=== PATIENT | male | born 1955 | race Caucasian/White ===

== ENCOUNTER 2018-01-13 09:13 | Outpatient (REF) | payer BC, SELFPAY ==
[2018-01-13 21:25] LABS: COMMENT (LAB VIEW ONLY) 117.29 mg/dL; Microalb ug/mg Crea 5.2 ug/mg Cr
== END 2018-01-13 09:14 ==
LOC: NCHCN 09:13
PROVIDERS: PCP Physician Assistant Medical; Visit Provider Physician Assistant Medical
DX: I10 Essential (primary) hypertension (principal); E11.9 Type 2 diabetes mellitus without complications; N18.3 Chronic kidney disease, stage 3 (moderate)
CPT/HCPCS: 82043; 82570

== ENCOUNTER 2018-02-16 08:26 | Outpatient (REF) | payer BC, SELFPAY ==
[2018-02-16 18:42] LABS: ALT 23 U/L (12-78); Anion Gap 4.5 mmol/L (3-11); BUN 15 mg/dL (7-18); CO2 33.5 mmol/L (21.0-32.0); Calcium 8.7 mg/dL (8.5-10.1); Chloride 103 mmol/L (98-107); Estimated GFR 55.94 (mL/min/1.73m2); Glucose 128 mg/dL (70-100); Potassium 3.9 mmol/L (3.5-5.1); Sodium 141 mmol/L (136-145)
== END 2018-02-16 08:46 ==
LOC: NCHCN 08:26
PROVIDERS: PCP Physician Assistant Medical; Visit Provider Physician Assistant Medical
DX: E11.65 Type 2 diabetes mellitus with hyperglycemia (principal); I10 Essential (primary) hypertension; N18.3 Chronic kidney disease, stage 3 (moderate)
CPT/HCPCS: 80048; 84460

== ENCOUNTER 2018-03-26 16:55 | Outpatient (REF) | payer BC, SELFPAY ==
[2018-03-26 19:08] LABS: Abs Immature Grans 0.01 k/cumm (0.0-0.09); Absolute Basophil Count 0.01 k/cumm (0.0-0.2); Absolute Eosinophil Count 0.22 k/cumm (0.0-0.7); Absolute Lymphocyte Count 1.58 k/cumm (1.2-3.4); Absolute Monocyte Count 0.71 k/cumm (0.11-0.7); Absolute Neutrophil Count 3.08 k/cumm (1.2-6.7); Basophils % 0.2; Eosinophils % 3.9; HGB 16.2 g/dL (13.5-17.5); Immature Grans % 0.2; Lymphocytes % 28.2; Mean Corp. HGB Concentration 34.5 g/dL (32.0-36.0); Mean Corpuscular Hemoglobin 28.6 pg (27.0-33.0); Mean Platelet Volume 10.2 fL (8.0-11.0); Monocytes % 12.7; Neutrophils % 54.8; Platelet Count 179 x1000/uL (130-400); RBC 5.66 m/cumm (4.50-6.00); RBC Distribution Width 13.2 % (11.8-14.1); White Blood Cell Count 5.61 k/cumm (4.4-10.8)
[2018-03-26 19:11] LABS: ALT 20 U/L (12-78); AST 17 U/L (15-37); Albumin 3.5 g/dL (3.4-5.0); Alkaline Phosphatase 68 U/L (46-116); Amylase 64 U/L (25-115); Anion Gap 10.8 mmol/L (3-11); BUN 13 mg/dL (7-18); Bilirubin, Total 1.5 mg/dL (0.2-1.0); CO2 30.2 mmol/L (21.0-32.0); CREATININE 1.13 mg/dL (0.70-1.30); Calcium 8.7 mg/dL (8.5-10.1); Chloride 102 mmol/L (98-107); Glucose 82 mg/dL (70-100); Lipase 168 U/L (73-393); Potassium 3.6 mmol/L (3.5-5.1); Sodium 143 mmol/L (136-145); Total Protein 6.8 g/dL (6.4-8.2)
[2018-03-26 20:37] LABS: Hemoglobin A1C 5.3 % (4.5-6.2)
== END 2018-03-26 17:15 ==
LOC: NCHCN 16:55
PROVIDERS: PCP Physician Assistant Medical; Visit Provider Nurse Practitioner Family
DX: R10.13 Epigastric pain (principal)
CPT/HCPCS: 80053; 83690; 82150; 83036; 85025

== ENCOUNTER 2019-02-10 09:13 | Outpatient (REF) | payer BC, SELFPAY ==
[2019-02-10 18:46] LABS: Anion Gap 12.1 mmol/L (3-11); BUN 18 mg/dL (7-18); CO2 24.9 mmol/L (21.0-32.0); CREATININE 1.33 mg/dL (0.70-1.30); Calcium 8.7 mg/dL (8.5-10.1); Chloride 105 mmol/L (98-107); Estimated GFR 54.31 (mL/min/1.73m2); Glucose 147 mg/dL (70-100); Sodium 142 mmol/L (136-145)
[2019-02-14 10:43] LABS: PSA, Screening 0.8 ng/ml (0-4.5)
== END 2019-02-10 09:33 ==
LOC: NCHCN 09:13
PROVIDERS: PCP Physician Assistant Medical; Visit Provider Nurse Practitioner Family
DX: I10 Essential (primary) hypertension (principal); R35.1 Nocturia; Z12.5 Encounter for screening for malignant neoplasm of prostate
CPT/HCPCS: 80048; 84153

== ENCOUNTER 2019-03-31 08:15 | Day surgery (SDC) | payer BC, SELFPAY ==
[2019-03-31] VITALS (9 sets, daily range): BP systolic 123–169; BP diastolic 69–102; PULSE 72–102; RESP 11–18; TEMP 36.3–36.6; O2SAT 91–96
[2019-03-31] MEDS: Lactated Ringers 1,000 ML 80 ML IV (08:45)
[2019-03-31] MEDS: CIPROFLOXACIN 400 MG/200 ML BAG 200 MG IVPB (09:02)
[2019-03-31] MEDS: Lidocaine 2% Jelly 6 ML SYR (11:28)
[2019-03-31] MEDS: Omnipaque 300 MG/ML 50 ML BTL (12:00)
--- NOTE | 2019-03-31 12:31 | PDOC.DSDIS_ITS ---
Discharge Plan Disposition Patient Disposition: HOME Condition: Stable Discharge Details Reason For Visit: surgery Attending Provider: Srikanth Mason Primary Care Provider: Valentin Monreal [place] Meds and New Rx's Prescriptions: No Action tramadol 50 mg tablet 50 mg PO BID PRNRF: 0 tamsulosin [Flomax] 0.4 mg capsule 0.4 mg PO DAILY RF: 0 oxybutynin chloride 5 mg tablet 2.5 mg PO DAILY RF: 0 amlodipine 2.5 mg tablet 2.5 mg PO DAILY RF: 0 losartan 50 mg tablet 50 mg PO DAILY RF: 0 atorvastatin 20 mg tablet 20 mg PO QHS RF: 0 sumatriptan succinate [Imitrex] 100 mg tablet 100 mg PO ONCE PRNRF: 0 metoprolol succinate 50 mg tablet extended release 24 hr 50 mg PO DAILY RF: 0 omeprazole 20 mg capsule,delayed release(DR/EC) 40 mg PO DAILY RF: 0 albuterol sulfate [ProAir HFA] 90 mcg/actuation HFA aerosol inhaler 2 puff IH Q6H PRNRF: 0 sildenafil [Viagra] 100 mg tablet 50 mg PO DAILY PRNRF: 0 Discharge Instructions Additional Instructions: no need to strain urine F/U appt with me 4 to 6 weeks with renal ultrasound on same visit Activity:: Activity as Tolerated Shower/Bathe:: 24 hours Diet:: As Tolerated Discharge Orders Discharge Orders: Discharge Order (Routine); Ordered 03/31/19 Ordered By: Srikanth Mason DS: Diagnosis Discharge Diagnosis (1) Bilateral kidney stones: Status: Acute
--- NOTE | 2019-03-31 12:32 | DI.RAD_ITS ---
EXAM: XR RETROGRADE IN OR INDICATION: Bilat renal stones. COMPARISON: No exams were available for comparison TECHNIQUE: 2D digital imaging was performed. FINDINGS: C-arm fluoroscopy was utilized by Dr. Mason during retrograde ureteral catheterization. Please see Micah Mason procedure note. IMPRESSION:
[2019-03-31] MEDS: fentaNYL 100 MCG/2 ML VIAL IVP (13:07)
[2019-03-31] MEDS: Phenazopyridine 200 MG TAB PO (13:59)
--- NOTE | 2019-04-01 09:31 | ROE_ITS ---
DATE OF PROCEDURE: March 31, 2019 PREOPERATIVE DIAGNOSIS: Bilateral kidney stones. POSTOPERATIVE DIAGNOSIS: Same. PROCEDURE: Cystoscopy; bilateral retrograde pyelogram; bilateral flexible ureteroscopy with stone ex tractions. SURGEON: Srikanth Mason M.D. ANESTHESIA: General. COMPLICATIONS: None. HISTORY: This is a 63-year-old gentleman who has chronic back pain. His back pain worsened recently and he was identified as having bilateral kidney stones. He presents now for stone manipulation. OPERATIVE REPORT: The patient was brought to the operating room on 03/31/19. After successful induct ion of general anesthesia, he was placed in the dorsal lithotomy position. His genitalia was prepped and draped. 2% Xylocaine jelly was instilled into the urethra to act as a local anesthetic. The 22 Chinese rigid cystoscope was then passed through the urethra into the bladder. The pendulous, bulbous and membranous urethras appeared normal. The prostatic urethra showed some la teral lobe enlargement. Both ureteral orifices were identified. I initially attempted to catheterize the left ureteral orifi ce with a 6 Chinese access catheter. I was unable to do so initially. I then moved on to the right side. I was able to pass the 6 Chinese access catheter and inject Omnipa que through the access catheter under fluoroscopic guidance. This allowed me to outline his renal ca lyces. I then passed a Guidewire through the access catheter and removed the access catheter and cystoscope. We passed a dual-lumen catheter over the wire and positioned a second wire. One of the wires was cho sen as a working wire and the other as a safety wire. The ureteral access sheath was then advanced over the working wire. The tip of the sheath was positi oned in the proximal ureter. A flexible ureteroscope was advanced through the access sheath up to the renal pelvis. The calyces w ere inspected and the previously-identified 6 mm stone was visualized. I was able to grasp this ston e in a Zero Tip stone basket and extract it in its entirety. The stone was sent to Pathology for casandra mical analysis. We then returned to cystoscopy and eventually I was able to guide a Glidewire through the ureteral or ifice and advance it up the left ureter. I then passed a dual-lumen catheter over the wire and posit ioned a second wire. We again chose one of the wires as a working wire and the other as a safety wir e. I passed a ureteral access sheath over the working wire, leaving the safety wire in place. The flexible ureteroscope was then reintroduced through the access sheath up to the level of the eric l pelvis. The calyces were inspected. In the upper pole calyx a stone was visualized and was graspe d in a Zero Tip stone basket. The stone was extracted in its entirety. Based on the CT, we expected a second stone in a mid-pole calyx. We again passed the flexible scope and visualized the second stone. This too was grasped in a Zero Tip stone basket and extracted. The ureteral access sheath and safety wire were then removed. The bladder was emptied. The patient tolerated this procedure well. He was taken to the recovery room in stable condition. He will follow-up with me in 4 to 6 weeks. H e will obtain a renal ultrasound and we will review his stone analysis. cc: Valentin Monreal M.D.
[2019-04-01 20:27] LABS: Source: Left Kidney; Source: Right Kidney
== END 2019-03-31 14:40 | disposition home or self-care (01) ==
PROVIDERS: PCP Internal Medicine; Visit Provider Urology
PROC: (CPT 52352; principal; 2019-03-31 10:15)
DX: N20.0 Calculus of kidney (principal); E11.22 Type 2 diabetes mellitus with diabetic chronic kidney disease; N18.3 Chronic kidney disease, stage 3 (moderate); I10 Essential (primary) hypertension; G89.29 Other chronic pain
CPT/HCPCS: 52352; 74420; 82365; J0744; J1100; J1885; J2405; J3010; Q9967

== ENCOUNTER 2019-05-04 01:19 | Outpatient (CLI) | payer BC, SELFPAY ==
--- NOTE | 2019-05-04 15:51 | DI.US_ITS ---
EXAM: US RENAL CLINICAL HISTORY: r/o hydronephrosis after ureteroscopy, FERNANDO KIDNEY STONES, N20.0 TECHNIQUE: Ultrasound performed using standard protocol. COMPARISON: CT RENAL COLIC from 03/09/2019 FINDINGS: Prevoid bladder volume measures 280 cc. There is a 21 cc postvoid residual. Right ureteral jet was visualized. The left ureteral jet was not visualized. The prostate was not measured. Multiple cyst s were noted on the right ovary, the largest measuring 5.4 x 5.2 x 6.8 cm. Bilateral nonobstructing stones are visible on the previous CT. No stones or hydronephrosis is seen on the current ultrasound . IMPRESSION: No evidence of hydronephrosis. Right renal cysts. No renal calculi were visible.
== END 2019-05-04 01:39 ==
PROVIDERS: PCP Internal Medicine; Visit Provider Urology
DX: N20.0 Calculus of kidney (principal); N28.1 Cyst of kidney, acquired
CPT/HCPCS: 76770

== ENCOUNTER 2019-09-20 17:42 | Outpatient (REF) | payer BC, SELFPAY ==
[2019-09-20 19:51] LABS: Anion Gap 6.9 mmol/L (3-11); BUN 21 mg/dL (7-18); CO2 30.1 mmol/L (21.0-32.0); CREATININE 1.23 mg/dL (0.70-1.30); Calcium 8.6 mg/dL (8.5-10.1); Chloride 103 mmol/L (98-107); Estimated GFR 59.24 (mL/min/1.73m2); Glucose 90 mg/dL (74-106); Sodium 140 mmol/L (136-145); TSH 0.51 uIU/mL (0.36-3.74)
[2019-09-20 20:01] LABS: Hemoglobin A1C 5.9 % (3.8-5.6)
== END 2019-09-20 18:02 ==
LOC: NCHCN 17:42
PROVIDERS: PCP Internal Medicine; Visit Provider Nurse Practitioner Family
DX: I10 Essential (primary) hypertension (principal); E11.9 Type 2 diabetes mellitus without complications
CPT/HCPCS: 80048; 83036; 84443

== ENCOUNTER 2019-11-01 02:41 | Outpatient (CLI) | payer BC, SELFPAY ==
--- NOTE | 2019-11-01 07:00 | DI.US_ITS ---
EXAM: US RENAL CLINICAL HISTORY: BILAT KIDNEY STONES, N20.0, ? HYDRONEPHROSIS. TECHNIQUE: Saravia scale, color and spectral Doppler were used. COMPARISON: CT CT RENAL COLIC from 03/09/2019 US US RENAL from 05/04/2019 FINDINGS: Renal size in cm: Right: 12.3 left: 14.7 Echogenicity: Normal. Hydronephrosis: No. Cyst or mass: Several simple right renal cysts. The largest measures 6.8 cm in maximum diameter. Nephrolithiasis: No definite stones are seen sonographically. Other findings: None. Bladder:Normal. Ureteral jets: Right: Visualized and unremarkable. Left: Visualized and unremarkable. Prevoid vol:132 cc The patient stated that he did not need to void. Prostate: Not measured at this time. Cc DOPPLER FINDINGS: Normal and symmetric blood flow to the kidneys. IMPRESSION: No evidence of hydronephrosis. DATA REPOSITORY:
== END 2019-11-01 03:01 ==
PROVIDERS: PCP Internal Medicine; Visit Provider Urology
DX: N20.0 Calculus of kidney (principal); N28.1 Cyst of kidney, acquired
CPT/HCPCS: 76770

== ENCOUNTER 2019-11-18 03:25 | Outpatient (CLI) | payer BC, SELFPAY ==
[2019-11-17 09:17] LABS: CREATININE 1.35 mg/dL (0.70-1.30); Estimated GFR 53.21 (mL/min/1.73m2)
--- NOTE | 2019-11-18 07:38 | DI.CT_ITS ---
EXAM: CT ABDOMEN PELVIS WO/W CLINICAL HISTORY: evaluate renal mass,N28.89 TECHNIQUE: COMPARISON: No exams were available for comparison FINDINGS: CT examination of the abdomen and pelvis was performed utilizing CT urogram protocol. Images obtaine d through the lung bases are unremarkable. Visualized portions of the liver, spleen, pancreas, bile ducts, and gallbladder are unremarkable. Abdominal aorta is of normal diameter and no major vascular abnormality is seen. No abdominal or pelvic adenopathy. Fat containing umbilical hernia noted. Appendix appears normal. No evidence of diverticulitis or bowel obstruction. Adrenals appear normal bilaterally. There are multiple right renal cysts, these were also noted on u ltrasound examination to be anechoic. The renal collecting systems appear normal. Renal cortex enha nces normally and symmetrically. No other renal cortical lesions identified. Ureters appear normal. Urinary bladder is unremarkable in appearance. Mild prostatic enlargement noted. IMPRESSION: Multiple right renal cysts. Otherwise unremarkable CT urogram. Largest right renal cyst measures ro ughly 7 cm in greatest diameter.
[2019-11-18] MEDS: Omnipaque 350 MG/ML 100 ML BTL IJ (11:50)
== END 2019-11-18 03:45 ==
PROVIDERS: PCP Internal Medicine; Visit Provider Urology
DX: N28.89 Other specified disorders of kidney and ureter (principal); N28.1 Cyst of kidney, acquired
CPT/HCPCS: 74178; 82565; J3490

== ENCOUNTER 2020-05-03 08:39 | Outpatient (REF) | payer OTHER, SELFPAY ==
[2020-05-03 19:49] LABS: Anion Gap 5.1 mmol/L (3-11); BUN 22 mg/dL (7-18); CO2 31.9 mmol/L (21.0-32.0); CREATININE 1.35 mg/dL (0.70-1.30); Calcium 8.9 mg/dL (8.5-10.1); Chloride 105 mmol/L (98-107); Estimated GFR 53.04 (mL/min/1.73m2); Glucose 100 mg/dL (74-106); Hemoglobin A1C 5.2 % (<5.7); Potassium 4.2 mmol/L (3.5-5.1); Sodium 142 mmol/L (136-145)
== END 2020-05-03 08:59 ==
LOC: NCHCN 08:39
PROVIDERS: PCP Internal Medicine; Visit Provider Nurse Practitioner Family
DX: I10 Essential (primary) hypertension (principal); R73.09 Other abnormal glucose
CPT/HCPCS: 80048; 83036

== ENCOUNTER 2020-12-03 07:13 | Outpatient (CLI) | payer OTHER, SELFPAY ==
--- NOTE | 2020-12-03 | DI.RAD_ITS ---
Exam(s) XR WRIST LT COMPLETE EXAM: XR WRIST LT COMPLETE CLINICAL HISTORY: LT WRIST PAIN, M25.532. TECHNIQUE: 2D digital imaging was performed. COMPARISON: No exams were available for comparison FINDINGS: Three views reveal no evidence of fracture or carpal dislocation. No significant ulnar variance. Sc aphoid appears unremarkable. Scapholunate distance is upper normal. Bone density is normal. No osseous lesions. No erosions. IMPRESSION: DATA REPOSITORY: RADIATION DOSE DELIVERED:
== END 2020-12-03 07:33 ==
PROVIDERS: PCP Internal Medicine; Visit Provider Nurse Practitioner Family
DX: M25.532 Pain in left wrist (principal)
CPT/HCPCS: 73110

== ENCOUNTER 2020-12-04 09:34 | Outpatient (REF) | payer OTHER, SELFPAY ==
[2020-12-04 19:13] LABS: Anion Gap 8.3 mmol/L (3-11); BUN 19 mg/dL (7-18); CO2 30.7 mmol/L (21.0-32.0); CREATININE 1.4 mg/dL (0.70-1.30); Calcium 8.8 mg/dL (8.5-10.1); Chloride 107 mmol/L (98-107); Estimated GFR 50.86 (mL/min/1.73m2); Glucose 111 mg/dL (74-106); Sodium 146 mmol/L (136-145)
[2020-12-05 19:59] LABS: Calculated LDL 47 mg/dL (<100); Cholesterol 112 mg/dL (<200); HDL Cholesterol 53 mg/dL (40-60); Triglyceride 63 mg/dL (<150)
[2020-12-05 20:14] LABS: COMMENT (LAB VIEW ONLY) 132.12 mg/dL; Microalb ug/mg Crea 15.2 ug/mg Cr
== END 2020-12-04 09:35 | disposition home or self-care (01) ==
LOC: NCHCN 09:34
PROVIDERS: PCP Internal Medicine; Visit Provider Nurse Practitioner Family
DX: E78.5 Hyperlipidemia, unspecified (principal); N18.30 Chronic kidney disease, stage 3 unspecified
CPT/HCPCS: 80048; 80061; 82043; 82570

== ENCOUNTER 2021-01-07 02:43 | Outpatient (CLI) | payer OTHER, SELFPAY ==
[2021-01-07 12:55] LABS: Source Nasal/Nares
[2021-01-07 18:38] LABS: COVID-19 PCR Negative (Negative)
== END 2021-01-07 02:44 | disposition home or self-care (01) ==
LOC: LBO 02:43
PROVIDERS: PCP Internal Medicine; Visit Provider Surgery
DX: Z20.822 Contact with and (suspected) exposure to COVID-19 (principal); Z01.818 Encounter for other preprocedural examination
CPT/HCPCS: 87635

== ENCOUNTER 2021-01-09 10:06 | Day surgery (SDC) | payer OTHER, SELFPAY ==
[2021-01-09] VITALS (8 sets, daily range): BP systolic 78–147; BP diastolic 47–88; PULSE 68–90; RESP 16–23; TEMP 36.3–36.8; O2SAT 92–98; BMI 35.6
--- NOTE | 2021-01-09 06:33 | ENDO_ITS ---
Date of service: 01/09/21 Time of Service: 12:34 Endoscopy Report DATE OF PROCEDURE: 01/09/21 PRE-OP DIAGNOSIS: GERD, occult blood positive POST-OP DIAGNOSIS: other (polyps, gastritis and esophagitis) PROCEDURE: 1. EGD with biopsies 2. Colonoscopy with polypectomy SURGEON: Frida Menchaca ANESTHESIA TYPE: General:No Airway (see anesthesia record) ESTIMATED BLOOD LOSS: 4 PATHOLOGY: other (ascending polyps x2, descending polyp x2, sigmoid polyp) COMPLICATIONS: Other (possible aspiration) DISPOSITION: same day INDICATIONS: The patient is here for Colonoscopy pre-op. His last screening was reported 15+ years ago. He recently had a (+) IFOB test and is here in follow for this positive result. He has no family history of colon cancer. He has not had any bowel habit changes. -Discussed colonoscopy bowel prep as well as the procedure. Discussed possible complications of the procedure to include bleeding, pain, perforation, missed small lesion/polyp, sore throat, aspiration and adverse reaction to the medications. Questions were answered to patient?s satisfaction. No guarantees were implied or given. I spent 35 minutes in reviewing the record, seeing the patient, providing patient education, answering patient's questions and documenting in the medical record. P// Colonoscopy under sedation (2) GERD (gastroesophageal reflux disease): -Discussed Upper endoscopy procedure and the need to be NPO after midnight the night prior. Discussed possible complications of the procedure to include bleeding, pain, perforation, missed small lesion/polyp/ulcers, sore throat, aspiration and adverse reaction to the medications or sedation. Questions were answered to patient?s satisfaction. No guarantees were implied or given. PREP: Miralax/Dulcolax PROCEDURE START TIME: 12:34 PROCEDURE END TIME: 13:15 COLONOSCOPY RETRACTION TIME: 21 minutes PROCEDURE DESCRIPTION: After informed consent was obtained the patient was take to the procedure room and placed in a supine position. Monitors were applied and a time out was done. The patients name, date of , procedure type, allergies to medications and metal in their body was reviewed. A bite block was placed and the patient was sedated. Once sedated and comfortable the gastroscope was advanced through the oropharynx which was grossly normal into the esophagus. The proximal and mid- esophagus were normal. In the distal esophagus there was mild inflammation noted. The scope was advanced into the stomach and through the pylorus into the 3rd portion of the duodenum. The duodenum was noted to be normal. The scope was retracted back into the stomach. At this point the patient was not moving air well so the scope was removed and he was bagged. His saturations came up and he started to breath again. The scope was placed back down into the stomach without difficulty. There was mild inflammation noted in the antrum. Biopsies were done to rule out H. pylori. There were no ulcers. The scope was retro- flexed. The cardia and fundus were noted to be normal. There was no hiatal hernia noted. The scope was retracted back into the esophagus and biopsies were done of the GE junction to rule out Andre's. The Z line was regular. The GE junction was at 40 cm. While the patient was still sedated they were placed in a left decubitous position. A rectal exam was done. External exam was normal. Internal exam revealed a normal sphincter tone and no palpable masses. The prostate felt enlar ged and smooth. The scope was then introduced and retro-flexed. No internal hemorrhoids, masses or polyps were identified on retroflexion. The scope was then advanced to the cecum without difficulty. The ileocecal valve and appendiceal orifice were identified. The prep was adequate. The scope was then slowly retracted over 21 minutes back into the rectum. Polyps were removed with a hot snare in the ascending colon, and with cold forceps in the ascending colon, descending colon x2, and sigmoid colon x1. There was mild diverticulosis noted in the sigmoid colon. The scope was removed and the patient was woken up and taken back to Same day surgery in stable condition. The patient tolerated the procedure well and there were no immediate complications. Follow up: 3-5 years
--- NOTE | 2021-01-09 06:35 | W.PM.DSUDISC ---
Discharge Plan Disposition Patient Disposition: HOME Condition: Good Discharge Details Reason For Visit: Colonoscopy/egd Attending Provider: Frida Menchaca Primary Care Provider: Valentin Monreal Home Meds and New Rx's Prescriptions: New clindamycin HCl 300 mg capsule 600 mg PO Q6H 5 Days Qty: 40 RF: 0 prednisone 20 mg tablet 40 mg PO DAILY 5 Days Qty: 10 RF: 0 Continued amlodipine 10 mg tablet 10 mg PO DAILY RF: 0 oxybutynin chloride 5 mg tablet 2.5 mg PO DAILY RF: 0 losartan 50 mg tablet 50 mg PO DAILY RF: 0 atorvastatin 20 mg tablet 20 mg PO QHS RF: 0 metoprolol succinate 50 mg tablet extended release 24 hr 50 mg PO DAILY RF: 0 omeprazole 20 mg capsule,delayed release(DR/EC) 40 mg PO DAILY RF: 0 albuterol sulfate [ProAir HFA] 90 mcg/actuation HFA aerosol inhaler 2 puff IH Q6H PRNRF: 0 sildenafil [Viagra] 100 mg tablet 50 mg PO DAILY PRNRF: 0 tamsulosin 0.4 mg capsule 0.4 mg PO QAM RF: 0 Discontinued bisacodyl [Dulcolax (bisacodyl)] 5 mg tablet,delayed release (DR/EC) 5 mg PO ONCE Qty: 4 RF: 0 polyethylene glycol 3350 17 gram/dose powder 238 g PO ONCE Qty: 238 RF: 0 Discharge Instructions Instructions: Diverticulosis (DC), Colorectal Polyps (DC) Additional Instructions: Findings: polyps, diverticulosis mild inflammation of the stomach and esophagus Follow up: depends on final pathology Please call if you develop: fevers >101.5 Nausea or Vomiting Abdominal pain that is not transient Rectal bleeding that is more then a tbsp A hard abdomen and inability to pass gas Increased shortness of breath DAY SURGERY UNIT POST ENDOSCOPY INSTRUCTIONS Instructions for everyone who is given Anesthesia: For your safety, please do the following for the next 24 Hours: a. Do not drive or operate dangerous equipment b. Do not drink alcohol beverages or use any recreational drugs for the first 24 hours or while taking pain medications. The medications in your body may have a reaction that can be dangerous. c. Do not make any important decisions or sign any important papers 1. Generally there are no restrictions on your activity after a day or so has gone by, but you may feel a bit fatigued for a few days. 2. After you arrive home you may have a light meal and return to a normal diet as you can tolerate it without feeling sick to your stomach. 3. After surgery, you may feel pain or discomfort. This should be only transient, but if it persists please contact your doctor. 4. If there are any questions regarding the findings of your procedure, please feel free to contact your doctor. 6. If you are unable to contact your doctor with a problem, contact the hospital at [phone]. 7. Continue all your regular medications unless directed otherwise. I understand the above instructions and have no questions. Signature of Patient or Responsible Adult Escort Date/Time Name of Responsible Adult Escort Signature of Nurse Date/Time Activity:: Activity as Tolerated Diet:: As Tolerated Discharge Orders Discharge Orders: Discharge Order (Routine); Ordered 01/09/21 Ordered By: Frida Menchaca
[2021-01-09] MEDS: Lactated Ringers 1,000 ML 80 ML IV (10:44)
--- NOTE | 2021-01-09 12:17 | W.ANESPRE ---
General Info Date of Service Date Performed: 01/09/21 Height: 5 ft 9 in Weight: 109.3 kg Body Mass Index (BMI): 35.6 Surgical Procedure: Operation Date: 01/09/21 11:20 Proposed Procedures Side Surgeon p Colonoscopy/Gastroscopy Frida Menchaca MD Meds Allergies and Home Medications Allergies Allergy/AdvReac Type Severity Reaction Status Date / Time amoxicillin Allergy Verified 01/09/21 10:23 Home Medication Medication Instructions Recorded albuterol sulfate 90 mcg/actuation 2 puff IH Q6H PRN 03/11/19 aerosol inhaler atorvastatin 20 mg tablet 20 mg PO QHS 03/11/19 losartan 50 mg tablet 50 mg PO DAILY 03/11/19 metoprolol succinate 50 mg 50 mg PO DAILY 03/11/19 tablet,extended release 24 hr omeprazole 20 mg capsule,delayed 40 mg PO DAILY cap 03/11/19 release oxybutynin chloride 5 mg tablet 2.5 mg PO DAILY tab 03/11/19 sildenafil 100 mg tablet 50 mg PO DAILY PRN tab 03/11/19 amlodipine 10 mg tablet 10 mg PO DAILY 10/06/19 bisacodyl 5 mg tablet,delayed 5 mg PO ONCE #4 tab 12/20/20 release polyethylene glycol 3350 17 238 g PO ONCE #238 g 12/20/20 gram/dose oral powder tamsulosin 0.4 mg PO QAM 01/08/21 Current Visit Medications: Current Medications Generic Name Dose Route Start Last Admin Trade Name Freq PRN Reason Stop Dose Admin Hyoscyamine Sulfate 0.125 mg 01/09/21 06:35 Hyoscyamine 0.125 Mg Sl/Oral/Chew SL DIRECTED PRN Ringer's Solution 1,000 mls @ 80 mls/hr 01/09/21 06:00 01/09/21 10:44 IV 02/07/21 23:59 80 mls/hr INFUSION TRISTIAN Administration IV Miscellaneous Supplies 1 each 01/09/21 06:00 Iv Access IV 02/07/21 23:59 DIRECTED TRISTIAN Ondansetron HCl 4 mg 01/09/21 06:35 Ondansetron 4 Mg/2 Ml Vial IVP Q4H PRN PRN Nausea / Vomiting Sodium Chloride 0 ml 01/09/21 06:00 Normal Saline Flush 10 Ml Syr IV 02/07/21 23:59 PRN PRN Sodium Chloride 0 ml 01/09/21 06:00 Normal Saline 10 Ml Vial IJ 02/07/21 23:59 DIRECTED PRN Sterile Water 0 ml 01/09/21 06:00 Water,Injection,Sterile 10 Ml Vial IJ 02/07/21 23:59 DIRECTED PRN PFSH Active Problems Active Problems: Problem Status Onset Code Fecal occult blood test positive R19.5 Hyperlipidemia E78.5 Renal mass N28.89 Bilateral kidney stones N20.0 Medical History Medical History Bilateral kidney stones CKD stage 3 due to type 2 diabetes mellitus Diabetes mellitus Erectile dysfunction ETOH abuse Hepatitis B pt. states it was a misdiagnosis Hypertension Migraine headache pt. denies Nocturia Renal calculus, left Renal mass Seborrheic dermatitis Snoring Umbilical hernia Surgical History Surgical History History of hernia repair Hx of knee surgery 2016 Tobacco Smoking/Tobacco Use Status: Former Tobacco Use Alcohol Alcohol Intake: never Substance Use Substance use: Current Sobriety Substance use type: does not use Vital Signs and Lab Results Vital Signs Most Recent Vital Signs in EMR: Most Recent Vital Signs Temp Pulse Resp BP Pulse Ox 36.3 C L 68 16 147/88 H 98 01/09/21 10:09 01/09/21 10:09 01/09/21 10:09 01/09/21 10:09 01/09/21 10:09 Point of Care Results Point of Care Results: Finger Stick Blood Glucose 95 01/09/21 10:43 Lab Results Blood Type / Crossmatch: No Data to Display Complete Blood Count: No Data to Display Complete Metabolic Panel: No Data to Display Liver Function Panel: No Data to Display Coagulation Panel: No Data to Display Cardiac Panel: No Data to Display Arterial Blood Gas: No Data to Display Venous Blood Gas: No Data to Display Pancreas Panel: No Data to Display Thyroid Panel: No Data to Display Infectious Disease: Coronavirus (COVID-19)(PCR) Negative (Negative) 01/07/21 08:30 01/07/21 Coronavirus 2019 Source Nasal/Nares 01/07/21 08:30 01/07/21 Blood Cultures: No Data to Display Toxicology Panel: No Data to Display Anesthesia Assessment and Plan Anesthesia History Personal History: No History of Anesthesia Complications Family History: No Family History of Anesthesia Complications Exercise Tolerance Exercise Tolerance: Metabolic Equivalents>4 Pertinent Negatives Pertinent Negatives: No Symptoms of GERD (Well controlled with medication), No Major Cardiovascular Symptoms or Complaints, No Major Pulmonary Symptoms or Complaints (Asthma mild well controlled) and No History of CVA/TIA Cardiac & Pulmonary Exam Cardiac Exam: Normal S1/S2 Heart Sounds Pulmonary Exam: Clear Bilateral Breath Sounds Airway Exam Known Difficult Airway: No Mallampati Class: 3 Mouth Opening: Narrow (< 3cm) Thyromental Distance: Greater than 3 cm Neck Range of Motion: Full ROM Neck Circumference: Thick Teeth Condition: Edentulous Airway Comments: Edentulous Remaining bottom teeth broken missing ASA Classification ASA Score: ASA 2 Emergency Case?: No NPO Status NPO Status: NPO Clears >2 hours, Solids >8 hours Anesthesia Plan Resuscitation Status: Full Code Anesthesia Technique: General Anesthesia Airway Planned: Natural Airway Monitors Used: Standard Monitors
--- NOTE | 2021-01-09 12:30 | BOWEL_PTH ---
PATIENT: Nathan Higgins LOC: [facility] U#:[id number] AGE/SX: 65/M ROOM: RE01/09/[address]: Frida Menchaca MD : [id number] BED: DIS: 01/09/2021 SPEC #: [id number] RECD: 01/09/21 16:28 STATUS: MARLENA REMeredith #: [id number] DELMY: 01/09/21 12:[address]: Frida Menchaca DEPT: Surgical Specimen RECD BY: Adrianne Molina ENTERED: 01/09/21 16:31 SP TYPE: Bowel OTHR DR: Valentin Monreal Tissues: 1 - BIOPSY BOWEL 2 - STOMACH BIOPSY 3 - STOMACH BIOPSY 4 - ESOPHAGUS BIOPSY 5 - BIOPSY BOWEL 6 - BIOPSY BOWEL 7 - BIOPSY BOWEL Procedures: GROSS AND MICRO LEVEL 4 Comments: [id number]
[2021-01-09] MEDS: Albuterol/Ipratropium 3 ML UPD VIAL UPD (14:00)
--- NOTE | 2021-01-09 14:03 | DI.RAD_ITS ---
Exam(s) XR PORTABLE CHEST AP EXAM: XR PORTABLE CHEST AP CLINICAL HISTORY: potential aspiration. TECHNIQUE: 2D digital imaging was performed. COMPARISON: No exams were available for comparison FINDINGS: Heart size is normal. The mediastinum is not widened. Lungs are clear. No infiltrates nor obvious pleural effusions. IMPRESSION: No acute pulmonary findings on this single AP portable view of the chest. DATA REPOSITORY: RADIATION DOSE DELIVERED: All CT scans at this facility use at least one of these dose optimization techniques: automated exposure control; mA and/or kV adjustment per patient size (includes targeted e xams where dose is matched to clinical indication); or iterative reconstruction.
--- NOTE | 2021-01-09 14:38 | W.ANESPOSTOP ---
Postoperative Evaluation Date, Time and Location Date Performed: 01/09/21 Time Performed: 14:38 Patient Location: Day Surgery Unit Vital Signs Most Recent Imported Vital Signs: Most Recent Vital Signs Temp Pulse Resp BP Pulse Ox 36.8 C 90 21 101/47 L 94 01/09/21 14:25 01/09/21 14:25 01/09/21 14:25 01/09/21 14:25 01/09/21 14:25 Pain Score Most Recent Pain Score: Most Recent Pain Score Pain Level 0 01/09/21 10:09 Assessment Mental Status: Awake (Alert & Oriented to Patient Baseline) Airway and Respiratory Function: Patent airway with normal (patient baseline) respiratory exam Cardiovascular Function: Hemodynamically Stable Hydration Status: Adequately Hydrated Nausea & Vomiting: No Nausea or Vomiting Pain: Pt. Denies Any Pain Peripheral Nerve Block: Patient did not receive a nerve block
== END 2021-01-09 15:38 | disposition home or self-care (01) ==
LOC: SUR 10:06
PROVIDERS: PCP Internal Medicine; Visit Provider Surgery
PROC: (CPT 43239; principal; 2021-01-09 11:15)
DX: Z12.11 Encounter for screening for malignant neoplasm of colon (principal); D12.5 Benign neoplasm of sigmoid colon; D12.4 Benign neoplasm of descending colon; K29.70 Gastritis, unspecified, without bleeding; K57.30 Diverticulosis of large intestine without perforation or abscess without bleeding; K29.80 Duodenitis without bleeding; K31.89 Other diseases of stomach and duodenum; K21.00 Gastro-esophageal reflux disease with esophagitis, without bleeding
CPT/HCPCS: 43239; 45385; 45380; 88305; 71045; J1100; J2001; J7620

== ENCOUNTER 2021-01-14 15:32 | Outpatient (REF) | payer OTHER, SELFPAY ==
[2021-01-16 16:20] LABS: COVID-19 RT-PCR UVMMC Result Negative (Negative)
== END 2021-01-14 15:33 | disposition home or self-care (01) ==
LOC: NCHCN 15:32
PROVIDERS: PCP Internal Medicine; Visit Provider Nurse Practitioner Family
DX: Z20.822 Contact with and (suspected) exposure to COVID-19 (principal); R05 Cough
CPT/HCPCS: U0003

== ENCOUNTER 2021-07-10 14:50 | Outpatient (REF) | payer OTHER, SELFPAY ==
[2021-07-10 21:20] LABS: ALT 27 U/L (16-63); AST 21 U/L (15-37); Albumin 3.9 g/dL (3.4-5.0); Alkaline Phosphatase 76 U/L (46-116); Anion Gap 5.4 mmol/L (3-11); BUN 17 mg/dL (7-18); CO2 31.6 mmol/L (21.0-32.0); CREATININE 1.4 mg/dL (0.70-1.30); Calcium 8.4 mg/dL (8.5-10.1); Calculated LDL 50 mg/dL (<100); Chloride 106 mmol/L (98-107); Cholesterol 118 mg/dL (<200); Glucose 132 mg/dL (74-106); HDL Cholesterol 52 mg/dL (40-60); Potassium 4.2 mmol/L (3.5-5.1); Sodium 143 mmol/L (136-145); Total Protein 7.3 g/dL (6.4-8.2); Triglyceride 80 mg/dL (<150)
== END 2021-07-10 14:51 | disposition home or self-care (01) ==
LOC: NCHCN 14:50
PROVIDERS: PCP Internal Medicine; Visit Provider Nurse Practitioner Family
DX: I10 Essential (primary) hypertension (principal); E78.5 Hyperlipidemia, unspecified; R73.09 Other abnormal glucose
CPT/HCPCS: 80053; 80061

== ENCOUNTER 2021-07-12 14:42 | Outpatient (REF) | payer OTHER, SELFPAY ==
[2021-07-12 20:52] LABS: Hemoglobin A1C 5.7 % (<5.7)
== END 2021-07-12 14:43 | disposition home or self-care (01) ==
LOC: NCHCN 14:42
PROVIDERS: PCP Internal Medicine; Visit Provider Nurse Practitioner Family
DX: R73.09 Other abnormal glucose (principal)
CPT/HCPCS: 83036

== ENCOUNTER 2021-08-13 17:04 | Outpatient (REF) | payer OTHER, SELFPAY ==
--- OUTSIDE RECORDS SUMMARY | 2021-08-13 17:07 | XMS_ITS ---
:1955 Author Care Team Providers Name Role Phone GILL BRUNNER General Surgeon [phone] PENNY KRUEGER MD Primary Care Provider [phone] Allergies Code Code System Name Reaction Severity Status Onset 723 RxNorm Amoxicillin Respiratory Severe Active Distress 8 Medications Name Status Start Date Stop Date ? ? amlodipine 2.5 mg tablet Active ? Not carrie ilable aspirin 81 mg tablet,delayed release Active ? Not available Take 1 tablet every day by oral route in the morning. atorvastatin 20 mg tablet Active ? Not av ailable cephalexin 500 mg capsule Completed ? 2018 diazepam 5 mg tablet Active ? Not availab le Dilaudid 2 mg tablet Completed 03/20/2016 07/08/2017 1-2 Tablet: Every 4 to 6 hours as needed erythromycin 5 mg/gram (0.5 %) Completed ? 0 01/03/2019 eye ointment ibuprofen 800 mg tablet Completed 05/13/2016 07/08/19 18 1 (one) Tablet: Three times a day lisinopril 10 mg tablet Completed ? 01/04/20 19 lisinopril 20 mg tablet Completed ? 02/17/20 19 Take 1 tablet every day by oral route for 30 days. lisinopril 40 mg tablet Completed ? 01/04/20 19 losartan 50 mg tablet Active ? Not availa ble metoprolol succ 50 mg-hydrochlorothiazide 12.5 mg tabl et,ext.rel 24 hr Completed ? 11/09/2018 Take 1 tablet every day by oral route. metoprolol succinate ER 50 mg Active ? No t available tablet,extended release 24 hr Nizoral 2 % shampoo Active ? Not availabl e APPLY TO THE AFFECTED AREA(S), LATHER, LEAVE IN PLACE FOR 5 MINUTES, AND THEN RINSE OFF WITH WATER BY TOPICAL ROUTE ONCE WEEKLY omeprazole 20 mg capsule,delayed release Completed ? 02/16/2019 Take 2 capsules every day by oral route in the morning. oxybutynin chloride 5 mg tablet Active ? Not available oxycodone 5 mg tablet Completed 03/17/2016 07/08/2017 1-2 Tablet: every 4 -6 hours prn ProAir HFA 90 mcg/actuation aerosol inhaler Active ? Not available Inhale 2 puffs every 4 hours by inhalation route as needed. sumatriptan 100 mg tablet Active ? Not av ailable tamsulosin 0.4 mg capsule Active ? Not av ailable triamterene 37.5 mg-hydrochlorothiazide 25 mg capsule Completed ? 02/16/2019 Take 1 capsule every day by oral route for 30 days. Viagra 100 mg tablet Active ? Not availab le Take 0.5 tablets every day by oral route as needed. Problems Name Status Onset Date Source ? Type 2 Diabetes Mellitus Active 11/09/2018 ? Migraine Active 11/09/2018 ? Hypertensive Disorder Active 11/09/2018 ? Umbilical Hernia Active 11/09/2018 ? Chronic Kidney Disease Stage 3 Active 11/09/2018 ? Primary Erectile Dysfunction Active 11/09/2018 ? Seborrheic Dermatitis Active 11/09/2018 ? Snoring Active 11/09/2018 ? Epigastric Pain Active 11/09/2018 ? History of Alcohol Abuse Active 11/09/2018 ? History of Hepatitis B Active 11/09/2018 ? Umbilical Hernia without Obstruction Active ? History and without Gangrene Shoulder Joint Pain Active ? History Strain of Muscle And/or Tendon of Thigh Active ? History Procedure by Method Active ? History Injury of Left Lower Leg Active ? History Procedures Date Name Performed by ? 03/23/2019 Kidney Operation Information not avai lable Notes: stones removed 02/23/2019 Repair of Hernia of Anterior Abdominal W all Information not available Notes: incarcerated umbilical hernia 05/25/2015 Arthroplasty of Knee Information not carrie ilable 08/21/2008 Egd Information not avai lable Notes: mild esophagitis, gastritis, a nd duodenitis 08/21/2008 Colonoscopy Information not avai lable Notes: normal colonoscopy 05/25/2000 Vasectomy Information not avai lable Results Lab Results None recorded. Past Encounters None recorded. Social History Tobacco Smoking Status Former Smoker Notes: quit Vaccine List None recorded. Plan of Care Reminders Provider Appointments None ? ? recorded. Lab None ? ? recorded. Referral None ? ? recorded. Procedures None ? ? recorded. Surgeries None ? ? recorded. Imaging None ? ? recorded. Vitals 04/15/2019 02:00PM Office 15 Height Blood Pressure 176.53 cm 142/90 mm[Hg] 01/03/2019 02:00PM Office 15 Height 176.53 cm 11/12/2018 10:30AM Office 15 Height Weight BMI 176.53 cm 117.03 kg 37.6 kg/m2 05/13/2016 Height Weight 177.8 cm 117.48 kg 04/30/2016 Height Weight 177.8 cm 117.48 kg 04/23/2016 Height Weight 177.8 cm 117.48 kg 03/17/2016 Height Weight 177.8 cm 117.48 kg 01/13/2012 Height Weight Blood Pressure 177.8 cm 97.52 kg 150/89 mm[Hg] 04/08/2011 Height Weight Blood Pressure 177.8 cm 97.52 kg 150/92 mm[Hg]
== END 2021-08-13 17:05 | disposition home or self-care (01) ==
LOC: NCHCN 17:04
PROVIDERS: PCP Internal Medicine; Visit Provider Nurse Practitioner Family
DX: B37.0 Candidal stomatitis (principal)
CPT/HCPCS: 87070

== ENCOUNTER 2023-05-11 15:59 | Outpatient (REF) | payer BC, SELFPAY ==
--- OUTSIDE RECORDS SUMMARY | 2023-05-11 16:00 | XMS_ITS | Continuity of Care Document ---
Author Name Unknown Organization [facility] Address [address] [place] [address] Care Team Providers Care Cotton Agent Name Role Phone Valentin Pederson Primary Care Physician Encounter [facility] Date(s): 06/11/22 - 06/11/[address] [address] Discharge Disposition: Home or Self Care Attending Physician: Valentin Day MD Admitting Physician: Valentin Day MD Allergies, Adverse Reactions, Alerts Substance Reaction Severity Status amoxicillin Distressed breathing Severe Active Social History Social History Type Response Sex Male Patient Care team information Personnel Name: Valentin Pederson MD Address: Address: [address] [address]
[2023-05-11 20:12] LABS: ALT 27 U/L (16-63); Anion Gap 6.8 mmol/L (3-11); BUN 28 mg/dL (7-18); CO2 29.2 mmol/L (21.0-32.0); CREATININE 1.5 mg/dL (0.70-1.30); Calcium 9.2 mg/dL (8.5-10.1); Chloride 103 mmol/L (98-107); Creatine Kinase 142 U/L (39-308); Glucose 143 mg/dL (74-106); Potassium 3.7 mmol/L (3.5-5.1); Sodium 139 mmol/L (136-145)
[2023-05-11 20:13] LABS: C-Reactive Protein < 0.05 mg/dL (0.0-0.3)
[2023-05-11 20:33] LABS: Calculated LDL 36 mg/dL (<100); Cholesterol 125 mg/dL (<200); HDL Cholesterol 53 mg/dL (40-60); Triglyceride 180 mg/dL (<150)
== END 2023-05-11 16:00 | disposition home or self-care (01) ==
LOC: NCHCN 15:59
PROVIDERS: PCP Internal Medicine; Visit Provider Internal Medicine
DX: I10 Essential (primary) hypertension (principal); U09.9 Post COVID-19 condition, unspecified
CPT/HCPCS: 80048; 80061; 82550; 84460; 86140

== ENCOUNTER 2024-08-16 12:55 | Outpatient (REF) | payer OTHER, SELFPAY | END 2024-08-16 12:56 | disposition home or self-care (01) | LOC: NCHCN 12:55 | PROVIDERS: PCP Internal Medicine; Visit Provider Nurse Practitioner Family | DX: R68.2 Dry mouth, unspecified (principal) | CPT/HCPCS: 87070 ==

== ENCOUNTER 2024-10-21 22:18 | Outpatient (REF) | payer OTHER, SELFPAY ==
[2024-10-21 20:38] LABS: ALT 49 U/L (16-63); Anion Gap 7.4 mmol/L (3-11); BUN 19 mg/dL (7-18); CO2 32.6 mmol/L (21.0-32.0); CREATININE 1.6 mg/dL (0.70-1.30); Calcium 9.6 mg/dL (8.5-10.1); Chloride 102 mmol/L (98-107); Creatine Kinase 127 U/L (39-308); Estimated GFR 46.35 (mL/min/1.73m2); Glucose 175 mg/dL (74-106); Potassium 3.4 mmol/L (3.5-5.1); Sodium 142 mmol/L (136-145)
[2024-10-21 20:51] LABS: Calculated LDL 3 mg/dL (<100); Cholesterol 85 mg/dL (<200); HDL Cholesterol 46 mg/dL (>or=40); Triglyceride 183 mg/dL (<150)
[2024-10-23 09:19] LABS: HIV-1/2 Ag & Ab Screen Negative (Negative)
[2024-10-24 12:57] LABS: Hepatitis C Ab w Rflx HCV PCR Negative (Negative)
== END 2024-10-21 22:19 | disposition home or self-care (01) ==
LOC: NCHCN 22:18
PROVIDERS: PCP Internal Medicine; Visit Provider Internal Medicine
DX: I10 Essential (primary) hypertension (principal); E78.5 Hyperlipidemia, unspecified; Z11.4 Encounter for screening for human immunodeficiency virus [HIV]
CPT/HCPCS: 80048; 80061; 82550; 86803; 87389; 84460

== ENCOUNTER 2025-02-08 13:02 | Emergency (ER) | payer OTHER, SELFPAY ==
[2025-02-08] VITALS (31 sets, daily range): BP systolic 86–114; BP diastolic 55–76; PULSE 68–82; RESP 10–28; TEMP 36.5; O2SAT 92–98
--- NOTE | 2025-02-08 13:00 | RT.EKG_ITS ---
APPROVED REPORT Exam: Resting ECG Reason for Exam: Chest Pain Patient Location: E HR:76 bpm ECG Measurements Heart Rate 76 AXIS ME 186 P 24 QRSd 102 QRS -20 QT 385 T 29 QTc 435 Conclusion Sinus rhythm...normal P axis, V-rate 60- 99 Low voltage, precordial leads...precordial leads <1.0mV I have reviewed and interpreted ECG and agree with software generated interpretation.
--- NOTE | 2025-02-08 13:18 | DI.RAD_ITS ---
Exam(s) XR PORTABLE CHEST AP EXAM: XR PORTABLE CHEST AP CLINICAL HISTORY: central chest pain. TECHNIQUE: 2D digital imaging was performed. COMPARISON: CR XR PORTABLE CHEST AP from 01/09/2021 FINDINGS: Single AP portable view. Heart size is upper normal. The mediastinum is not widened. Lungs are clear. No infiltrates nor obvious pleural effusions. IMPRESSION: No acute pulmonary findings on this single AP portable view of the chest. DATA REPOSITORY: RADIATION DOSE DELIVERED:
[2025-02-08] MEDS: Aspirin 81 MG CHEW 324 MG CH (13:24)
--- NOTE | 2025-02-08 13:24 | W.ED.GENAD ---
Discharge Plan Disposition Patient Disposition: Home Condition: Good Discharge Details Clinical Impression: Chest discomfort, Pancreatitis, KELVIN (acute kidney injury) Primary Care Provider: Valentin Monreal ED Provider: Haroldo Connor Home Meds and New Rx's Prescriptions: No Action triamterene-hydrochlorothiazid 37.5-25 mg capsule 1 cap PO DAILY tamsulosin 0.4 mg capsule 0.4 mg PO DAILY atorvastatin 20 mg tablet 20 mg PO QHS metoprolol succinate 50 mg tablet extended release 24 hr 50 mg PO DAILY sildenafil [Viagra] 100 mg tablet 50 mg PO DAILY PRN losartan 50 mg tablet 100 mg PO DAILY omeprazole 20 mg capsule,delayed release(DR/EC) 20 mg PO DAILY carvedilol 12.5 mg tablet 12.5 mg PO BID Rx Instructions: must administer with a meal/food hydrocortisone 2.5 % lotion 1 applic topical BID PRN Ozempic 0.25 mg or 0.5 mg (2 mg/3 mL) pen injector 0.25 mg subcut QWEEK Rx Instructions: for 4 weeks albuterol sulfate [Ventolin HFA] 90 mcg/actuation HFA aerosol inhaler 2 puff inhalation Q4H PRN Discharge Instructions Instructions: Acute kidney injury, Pancreatitis (DC), Chest Pain (DC) Additional Instructions: As we discussed together at this time you have 2 main etiologies of concern. 1.: Your chest discomfort does not appear to be cardiac in origin based on the current assessment. That being said with your age and risk factors it is probably prudent to follow-up closely with your primary care provider Dr. Parsons to discuss nonemergent stress testing to make absolutely certain there is no cardiac disease in general. However on our assessment we did find evidence of acute pancreatitis which may be a cause of your symptomatology today. The pancreatitis may be secondary to your semaglutide injections. It would be reasonable to hold off on the semaglutide for the time being until the pancreatitis improves. Please stick with a liquid or bland diet for the next 1 to 2 weeks. Avoid any super fatty or sugary foods. #2: Additionally, you have evidence of an acute kidney injury. You have mild to moderate chronic renal disease but it appears to be slightly worse than normal. This also may be due to dehydration or potentially the semaglutide. Please drink plenty of fluids, avoid excessive caffeine, and stay well-hydrated. The goal would be for a light-colored urine. It is very important that you follow-up with your primary care provider for reassessment of your kidney function repeat blood draw in the next 3 to 5 days. I have contacted your primary care provider and they will help establish this. If you notice any worsening of your symptoms, or any new symptoms such as vomiting, diarrhea, fever, chills, shortness of breath, chest pain, numbness, weakness, or fainting , please return immediately to the emergency department for reevaluation. Please follow up with your primary care provider as soon as possible for reassessment and reevaluation. As always, it was a pleasure participating in your medical care today. Referrals: Valentin Monreal [Primary Care Provider, Medicine] Discharge Data Discharge Date/Time-TO BE ENTERED AT DEPARTURE: 02/08/25 17:21 HPI General Date/Time Provider Initiated Documentation: 02/08/25 13:07. HPI Narrative: 69-year-old male with past medical history of chronic constipation, high cholesterol, hypertension, GERD, on semaglutide, with a distant tobacco history 30 years ago, presents today for evaluation of chest pain. 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 The pain gradually worsened with time and then transition to a left side central chest pain which is described as sharp and heavy, with some associated shortness of breath. Eventually the pain improved slightly about 30 minutes prior to arrival. He denies having any cardiac history, he denies any family history of cardiac history. He denies having any symptoms like this in the past. No other complaints at this time. He denies vomiting, vision changes. He does admit to notable lightheadedness during the initial event, but that has subsequently resolved. No other complaints at this time. No other modifying factors. Related Data Home Medications ?Medication ?Instructions ?Recorded ?Confirmed atorvastatin 20 mg tablet 20 mg PO QHS 03/11/19 12/25/22 metoprolol succinate 50 mg 50 mg PO DAILY 03/11/19 12/25/22 tablet,extended release 24 hr sildenafil 100 mg tablet (Viagra) 50 mg PO DAILY PRN 03/11/19 12/25/22 albuterol sulfate 90 mcg/actuation 2 puff inhalation Q4H PRN 08/22/24 aerosol inhaler (Ventolin HFA) carvedilol 12.5 mg tablet 12.5 mg PO BID 08/22/24 hydrocortisone 2.5 % lotion 1 applic topical BID PRN 08/22/24 losartan 50 mg tablet 100 mg PO DAILY 08/22/24 omeprazole 20 mg capsule,delayed 20 mg PO DAILY 08/22/24 release semaglutide 0.25 mg or 0.5 mg (2 0.25 mg subcut QWEEK 08/22/24 mg/3 mL) subcutaneous pen injector (Ozempic) tamsulosin 0.4 mg capsule 0.4 mg PO DAILY urination 11/30/24 triamterene 37.5 1 cap PO DAILY 11/30/24 11/30/24 mg-hydrochlorothiazide 25 mg capsule Allergies Allergy/AdvReac Type Severity Reaction Status Date / Time amoxicillin Allergy Other (See Verified 02/08/25 13:20 Comment) General Stated Complaint: Chest Pain ROCHELLE: 2 Exam Narrative Exam Narrative: 1.Const: Well-nourished, Well-developed, appearing stated age 2.Eyes: PERRL, no conjunctival injection, and symmetrical lids. 3.ENT: Atraumatic external nose and ears. Moist MM. Neck: Symmetric, trachea midline, No thyromegaly. 4.CVS: +S1/S2, Peripheral pulses 2+ and equal in all extremities. Brisk capillary refill in all extremities. 5.RESP: Unlabored respiratory effort. Clear to auscultation bilaterally. No wheezes rales or rhonchi 6.GI: Soft, Nontender/Nondistended, No hepatosplenomegaly. No guarding or rebound. 7.MSK: Normocephalic/Atraumatic, Extremities w/o deformity or ttp No cyanosis or clubbing, Normal movement of all extremities 8.Skin: Warm, Dry. No rashes or lesions. 9.Neuro: cigar tobacco rehandler II-XII grossly intact. Sensation grossly intact, no focal neurologic deficits. 10.Psych: (AAO) x3. Appropriate mood and affect Course Vital Signs Vital signs: Vital Signs Temperature 36.5 C 02/08/25 13:05 Pulse 80 02/08/25 13:05 Respiratory Rate 16 02/08/25 13:05 Blood Pressure 113/76 02/08/25 13:05 Pulse Oximetry 96 02/08/25 13:05 Temperature 36.5 C 02/08/25 13:05 Temperature Source Oral 02/08/25 13:05 Pulse 80 02/08/25 13:05 Respiratory Rate 16 02/08/25 13:05 Blood Pressure 113/76 02/08/25 13:05 Blood Pressure Position Sitting 02/08/25 13:05 Pulse Oximetry 96 02/08/25 13:05 Oxygen Delivery Method Room Air 02/08/25 13:05 Oxygen Flow Rate 0 02/08/25 13:05 Pain Level 3 02/08/25 13:05 Comment had been 01/01 when it started 02/08/25 13:05 Medical Decision Making 69-year-old male with past medical history of chronic constipation, high cholesterol, hypertension, GERD, on semaglutide, with a distant tobacco history 30 years ago, presents today for evaluation of chest pain. 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 The pain gradually worsened with time and then transition to a left side central chest pain which is described as sharp and heavy, with some associated shortness of breath. Eventually the pain improved slightly about 30 minutes prior to arrival. He denies having any cardiac history, he denies any family history of cardiac history. He denies having any symptoms like this in the past. No other complaints at this time. He denies vomiting, vision changes. He does admit to notable lightheadedness during the initial event, but that has subsequently resolved. No other complaints at this time. No other modifying factors. Exam demonstrates well-appearing male, vital signs stable, no tachycardia hyper or hypotension. Patient has equal radial pulses bilaterally. No signs of hemodynamic instability at this time. EKG shows no evidence of STEMI. Differential includes cardiac etiology, ACS, GERD, esophageal spasm, less likely dissection. Patient states that his pain is currently around a 7 out of 10. We will give 1 nitroglycerin, aspirin, evaluate for concerning etiologies, monitor closely and reassess. 1720 p.m. Laboratory workup returned, serial troponins are normal, no white count bandemia or left shift, D-dimer normal with no evidence to suggest PE. Creatinine is high at 2.7 which is higher than normal for the patient. He has been rehydrated here. Patient remains chest pain-free. Lipase is elevated at 205. CT imaging shows no evidence of significant acute process. No evidence of pancreatitis on CT imaging or signs of obstructive uropathy. I had a long discussion with the patient, the patient is on semaglutide, and this certainly may be a component or causative agent for the KELVIN and the potential otherwise asymptomatic pancreatitis. I did contact the patient's primary care provider, and spoke with his care team there, I did request close follow-up for repeat blood draw to evaluate for change in his renal function and improvement. Recommended to the patient they continue to drink plenty of water and stay well-hydrated. They will pause the semaglutide for the time being. Additionally recommended dietary changes/recommendations for recurrent pancreatitis. Recommend liquid low-fat low sugar diet. Patient understands. Recommend outpatient nonemergent stress testing for the patient as well. Discussed this with patient and family and he agrees with the plan. Patient at this time has 3 serial troponins that are normal. EKG benign. Imaging stable. Discharge diagnosis is KELVIN, and pancreatitis. Suspect potential iatrogenic from medication. Recommend close follow-up. Discussed red flags for which to return. I have extensively reviewed the treatment plan and discharge instructions with the patient and their family. I have addressed all patient concerns at this time. The patient and family was made aware of what symptoms to monitor for that would warrant a return to the emergency department. Discussed the plan with the patient and family, they demonstrate verbal understanding and agreement with our assessment and plan at this time. The documentation in this chart was dictated using [employer] dictation software. Please excuse any dictation errors. FINDINGS: The lack of IV contrast does limit evaluation of the abdominal pelvic organs. CHEST: Tracheobronchial tree: Patent where visualized. No bronchiectasis. Pulmonary parenchyma: No consolidation or dominant measurable mass. There is linear atelectasis in the lung bases. Mediastinum and Roxy: No dominant adenopathy or fluid collection. The esophagus is unremarkable. Thyroid gland: Unremarkable. Pleura: No effusion or pneumothorax. Heart: The heart is not dilated. Mild three-vessel coronary artery calcification is present. No pericardial effusion. Aorta: Thoracic aorta non-dilated. Mild atherosclerotic calcification is present. Lymph nodes: Within normal limits. Bones:Within normal limits for the patient's age. Soft tissues: Unremarkable. ABDOMEN: Liver: Normal density. There is a stable tiny cyst in the periphery of the right lobe of the liver. No suspicious hepatic lesions are seen. Gallbladder and Biliary Tract: No radiodense calculus or dilation. Pancreas: Normal density, no abnormal calcifications or inflammatory process. Spleen: Normal. Adrenals: No masses seen. Kidneys: Normal size, contour and axis. No radiodense stones or obstructive uropathy. There is stable right renal cysts. No follow-up is recommended. Abdominal Aorta: Abdominal portion non-dilated. Atherosclerotic calcification is present. Bowel: There is diverticulosis of the colon, but no evidence of acute diverticulitis. Appendix is unremarkable. There is no evidence of bowel wall thickening or obstruction. Peritoneal Cavity: No ascites, collection or mesenteric inflammatory response. No free air. Lymph Nodes: Within normal limits. Bones: Within normal limits for the patient's age. Soft Tissues: There is a fat containing umbilical hernia. There is a well-circumscribed partially fat density lesion in the umbilicus. It measures 2.2 cm. It is become more soft tissue density when compared to prior examinations. PELVIS: Bladder: The urinary bladder is incompletely distended but grossly unremarkable. Reproductive Organs: Unremarkable as visualized. Lymph Nodes: Within normal limits. Bones: Within normal limits for the patient's age. IMPRESSION: 1. There is no acute pulmonary process. 2. No CT evidence of acute pancreatitis is seen. 3. There is colonic diverticulosis without evidence of acute diverticulitis. 4. No evidence of obstructive uropathy. 5. There is limited evaluation of the kidney secondary to lack of IV contrast. If there is continued concern for renal lesion MRI without and with contrast may be obtained for further evaluation. 6. There are stable right renal simple cysts. 7. 2.2 cm umbilical lesion as described above. Solid mass in the umbilicus cannot be excluded. MRI or postcontrast CT scan is recommended for further characterization. PFSH All Active Problems (Updated 02/08/25 @ 16:59 by Haroldo Connor DO) KELVIN (acute kidney injury) (Acute) Pancreatitis (Chronic) Chest discomfort (Acute) Gastritis (Acute) Duodenitis (Acute) Sessile colonic polyp (Acute) Tubular adenoma of colon (Acute) Fecal occult blood test positive (Acute) Hyperlipidemia (Acute) Renal mass (Acute) Bilateral kidney stones (Acute) Medical History (Updated 02/08/25 @ 16:59 by Haroldo R [place], DO) Erectile dysfunction Umbilical hernia Hepatitis B pt. states it was a misdiagnosis ETOH abuse Seborrheic dermatitis CKD stage 3 due to type 2 diabetes mellitus Migraine headache pt. denies Snoring Nocturia Diabetes mellitus Hypertension Renal calculus, left Surgical History History of hernia repair Hx of knee surgery 2016 Social History Smoking/Tobacco Use Status: Former Tobacco Use Quit Date: 05/25/89 Smoking risk assessment performed?: Yes Alcohol Intake: never Drug use: Current Sobriety Substance use type: does not use Housing: house Current gender identity: male Do you feel safe at home: Yes Do you feel safe in your relationship?: Yes
[2025-02-08] MEDS: nitroGLYcerin 0.4 MG TAB SL (13:25)
[2025-02-08 13:28] LABS: Abs Immature Grans 0.02 10^3/uL (0.0-0.06); HCT 45.2 % (40.0-50.0); HGB 15.9 g/dL (13.5-17.5); Immature Grans % 0.3 %; MCH 29.2 pg (27.0-33.0); MCHC 35.2 % (32.0-36.0); MCV 83 fL (80-95); MPV 9.5 fL (8.0-11.0); Platelet Count 208 10^3/uL (130-400); RBC 5.44 10^6/uL (4.36-5.78); RDW 11.9 % (11.8-14.1); RDW-SD 35.8 fL; WBC 5.96 10^3/uL (4.4-10.8)
[2025-02-08 13:47] LABS: INR 1.1 (0.9-1.1); PTT Activated 24.0 sec (20.6-30.2); Prothrombin Time 10.8 sec (9.1-11.1)
[2025-02-08 13:58] LABS: ALT 37 U/L (16-63); AST 27 U/L (15-37); Albumin 3.9 g/dL (3.4-5.0); Alkaline Phosphatase 59 U/L (46-116); Anion Gap 9.8 mmol/L (3-11); BUN 37 mg/dL (7-18); Bilirubin, Total 3.2 mg/dL (0.2-1.0); CO2 30.2 mmol/L (21.0-32.0); Calcium 9.4 mg/dL (8.5-10.1); Chloride 101 mmol/L (98-107); Estimated GFR 24.74 (mL/min/1.73m2); Glucose 127 mg/dL (74-106); Lipase 205 U/L (<78); NT-proBNP 14 pg/mL (<300); Potassium 3.9 mmol/L (3.5-5.1); Sodium 141 mmol/L (136-145); TSH (W/Ref FT4) 0.33 uIU/mL (0.36-3.74); Total Protein 7.5 g/dL (6.4-8.2); Troponin I 6 ng/L (<or=76)
[2025-02-08 14:28] LABS: D-Dimer 391 ng/mlFEU (<500)
[2025-02-08] MEDS: Normal Saline 500 ML IV (15:00)
[2025-02-08 15:01] LABS: Troponin I 7 ng/L (<or=76)
--- NOTE | 2025-02-08 15:49 | DI.CT_ITS ---
Exam(s) CT CHEST/ABD/PEL WO EXAM: CT CHEST/ABD/PEL WO CLINICAL HISTORY: Pancreatitis, worsening renal fxn, eval for mass TECHNIQUE: Imaging Protocol: Axial computed tomography images with coronal and sagittal reformatted images were created and reviewed. Computer aided detection (CAD) was utilized. COMPARISON: CT CT RENAL COLIC from 03/09/[address] ABDOMEN PELVIS WO/W from 11/18/[address] ABDOMEN PELVIS WO from 01/05/2023 CR XR PORTABLE CHEST AP from 02/08/2025 FINDINGS: The lack of IV contrast does limit evaluation of the abdominal pelvic organs. CHEST: Tracheobronchial tree: Patent where visualized. No bronchiectasis. Pulmonary parenchyma: No consolidation or dominant measurable mass. There is linear atelectasis in the lung bases. Mediastinum and Roxy: No dominant adenopathy or fluid collection. The esophagus is unremarkable. Thyroid gland: Unremarkable. Pleura: No effusion or pneumothorax. Heart: The heart is not dilated. Mild three-vessel coronary artery calcification is present. No pericardial effusion. Aorta: Thoracic aorta non-dilated. Mild atherosclerotic calcification is present. Lymph nodes: Within normal limits. Bones:Within normal limits for the patient's age. Soft tissues: Unremarkable. ABDOMEN: Liver: Normal density. There is a stable tiny cyst in the periphery of the right lobe of the liver. No suspicious hepatic lesions are seen. Gallbladder and Biliary Tract: No radiodense calculus or dilation. Pancreas: Normal density, no abnormal calcifications or inflammatory process. Spleen: Normal. Adrenals: No masses seen. Kidneys: Normal size, contour and axis. No radiodense stones or obstructive uropathy. There is stable right renal cysts. No follow-up is recommended. Abdominal Aorta: Abdominal portion non-dilated. Atherosclerotic calcification is present. Bowel: There is diverticulosis of the colon, but no evidence of acute diverticulitis. Appendix is unremarkable. There is no evidence of bowel wall thickening or obstruction. Peritoneal Cavity: No ascites, collection or mesenteric inflammatory response. No free air. Lymph Nodes: Within normal limits. Bones: Within normal limits for the patient's age. Soft Tissues: There is a fat containing umbilical hernia. There is a well- circumscribed partially fat density lesion in the umbilicus. It measures 2.2 cm. It is become more soft tissue density when compared to prior examinations. PELVIS: Bladder: The urinary bladder is incompletely distended but grossly unremarkable. Reproductive Organs: Unremarkable as visualized. Lymph Nodes: Within normal limits. Bones: Within normal limits for the patient's age. IMPRESSION: 1. There is no acute pulmonary process. 2. No CT evidence of acute pancreatitis is seen. 3. There is colonic diverticulosis without evidence of acute diverticulitis. 4. No evidence of obstructive uropathy. 5. There is limited evaluation of the kidney secondary to lack of IV contrast. If there is continued concern for renal lesion MRI without and with contrast may be obtained for further evaluation. 6. There are stable right renal simple cysts. 7. 2.2 cm umbilical lesion as described above. Solid mass in the umbilicus cannot be excluded. MRI or postcontrast CT scan is recommended for further characterization. RADIATION DOSE DELIVERED: 877.49mGy.cm Total DLP 877.49mGy.cm Total DLP DATA REPOSITORY: All CT scans at this facility are submitted to the National Radiology Data Registry (NRDR) Dose Index Registry (DIR) with the [employer] ([employer]). RADIATION OPTIMIZATION: All CT scans at this facility use at least one of these dose optimization techniques: automated exposure control; mA and/or kV adjustment per patient size (includes targeted exams where dose is matched to clinical indication); or iterative reconstruction.
[2025-02-08 16:50] LABS: Troponin I 7 ng/L (<or=76)
== END 2025-02-08 17:21 | disposition home or self-care (01) ==
PROVIDERS: Emergency Provider Student in an Organized Health Care Education/Training Program; PCP Internal Medicine
DX: R07.9 Chest pain, unspecified (principal); K85.90 Acute pancreatitis without necrosis or infection, unspecified; N17.9 Acute kidney failure, unspecified; E11.22 Type 2 diabetes mellitus with diabetic chronic kidney disease; I12.9 Hypertensive chronic kidney disease with stage 1 through stage 4 chronic kidney disease, or unspecified chronic kidney disease; N18.30 Chronic kidney disease, stage 3 unspecified; E78.5 Hyperlipidemia, unspecified; Z79.85 Long-term (current) use of injectable non-insulin antidiabetic drugs
CPT/HCPCS: 36415; 71250; 80053; 83690; 93005; 96360; 96361; 99284; 71045; 74176; 83880; 84439; 84443; 84484; 85025; 85379; 85610; 85730; 93010

== ENCOUNTER 2025-02-13 14:19 | Outpatient (REF) | payer OTHER, SELFPAY ==
[2025-02-13 19:43] LABS: Anion Gap 6.4 mmol/L (3-11); BUN 33 mg/dL (7-18); CO2 29.6 mmol/L (21.0-32.0); Calcium 9.4 mg/dL (8.5-10.1); Chloride 99 mmol/L (98-107); Estimated GFR 35.46 (mL/min/1.73m2); Glucose 142 mg/dL (74-106); Potassium 3.9 mmol/L (3.5-5.1); Sodium 135 mmol/L (136-145)
== END 2025-02-13 14:20 | disposition home or self-care (01) ==
LOC: NCHCN 14:19
PROVIDERS: PCP Internal Medicine; Visit Provider Physician Assistant
DX: N18.30 Chronic kidney disease, stage 3 unspecified (principal)
CPT/HCPCS: 80048

== ENCOUNTER 2025-02-22 10:54 | Outpatient (REF) | payer OTHER, SELFPAY ==
[2025-02-22 20:21] LABS: Anion Gap 5.9 mmol/L (3-11); BUN 15 mg/dL (7-18); CO2 30.1 mmol/L (21.0-32.0); Calcium 8.2 mg/dL (8.5-10.1); Chloride 106 mmol/L (98-107); Estimated GFR 50.08 (mL/min/1.73m2); Glucose 161 mg/dL (74-106); Lipase 293 U/L (<78); Potassium 3.9 mmol/L (3.5-5.1); Sodium 142 mmol/L (136-145)
== END 2025-02-22 10:55 | disposition home or self-care (01) ==
LOC: NCHCN 10:54
PROVIDERS: PCP Internal Medicine; Visit Provider Internal Medicine
DX: K85.90 Acute pancreatitis without necrosis or infection, unspecified (principal); N18.30 Chronic kidney disease, stage 3 unspecified
CPT/HCPCS: 80048; 83690

== ENCOUNTER → 2025-03-30 01:53 | Outpatient (CLI) | payer OTHER, SELFPAY ==
[2025-03-30] MEDS: Gadoterate meglumine 20 ML VIAL IVP (10:09)
[2025-03-30] MEDS: Normal Saline - Diluent 50 ML VIAL IJ (10:10)
--- NOTE | 2025-03-30 11:30 | DI.MRI_ITS ---
Exam(s) MR ABDOMEN WO/W EXAM: MR ABDOMEN WO/W CLINICAL HISTORY: ACUTE PANCREATITIS,K85.90 TECHNIQUE: Multiplanar multisequence MRI of the Abdomen was performed. CONTRAST MATERIAL: IV Contrast: 20 mL of Dotarem contrast administered. COMPARISON: CT CT CHEST/ABD/PEL WO from 02/08/2025 FINDINGS: Lung bases: Unremarkable. Liver: There is a 1 cm simple cysts in the periphery of the right lobe of the liver. There are no suspicious hepatic masses present. There is normal signal in the liver. Pancreas: There is no evidence of a pancreatic mass or pancreatic ductal dilatation. No peripancreatic fluid collections are seen to suggest an abscess or pseudocyst. There are no findings to suggest an acute pancreatitis. There is a small cyst seen in the uncinate process. It measures 7 mm. There is no enhancement. Gallbladder and Bile Ducts: There is no evidence of cholelithiasis or biliary ductal dilatation. Adrenals: Unremarkable. Kidneys: There are bilateral simple renal cysts. The largest is on the right kidney and measures 6.1 x 5.9 cm. There is no follow-up recommended. No suspicious solid renal masses are seen. There is no evidence of obstructive uropathy. Spleen: Unremarkable. Bowel: There is diverticulosis seen in the colon but no evidence of acute diverticulitis. There is no bowel wall thickening or obstruction present. Aorta: Unremarkable. Soft Tissues: Unremarkable. Bone: Unremarkable. Lymph Nodes: Unremarkable. IMPRESSION: 1. Unremarkable pancreas. No evidence of an acute pancreatitis. 2. No evidence of cholelithiasis or biliary ductal dilatation. 3. Bilateral simple renal cysts. No follow-up is recommended. 4. No suspicious solid renal masses. 5. No suspicious umbilical lesion. No abnormal enhancement is seen. There is a small fat containing umbilical hernia. DATA REPOSITORY:
== END ==
PROVIDERS: PCP Internal Medicine; Visit Provider Internal Medicine
DX: K85.90 Acute pancreatitis without necrosis or infection, unspecified (principal)
CPT/HCPCS: 74183